=== PATIENT | male | born 2000 | race Caucasian/White ===

== ENCOUNTER 2018-05-06 22:30 | Emergency (ER) | payer SELFPAY ==
[2018-05-06] MEDS ORDERED: Lidocaine 2% EPI 1:200000 MPF* 10 ML VIAL INJ ONE (22:39)
--- NOTE | 2018-05-06 22:41 | ED ---
Laceration/Wound HPI - HPI Summary HPI Summary: This patient is a 17 year old M brought in by ambulance to ED with a chief complaint of L hand laceration since [employer]ORT OR [employer]. The patient states he broke off his mckeon in the car door and took out his knife to try to remove it when the knife slipped and cut him on the L hand between the pinky and ring finger. Currently, the bleeding is controlled. The patient rates the pain 4/10 in severity. Symptoms aggravated by nothing. Symptoms alleviated by nothing. - History of Current Complaint Stated Complaint: LAC ON RIGHT PINKY FINGER PER EMS Time Seen by Provider: 05/06/18 22:36 Hx Obtained From: Patient Onset/Duration: Sudden Onset, Lasting Minutes, Still Present Aggravating: Nothing Alleviating: Nothing Onset Severity: Mild Current Severity: Mild Pain Intensity: 4 Pain Scale Used: 0-10 Numeric - Allergy/Home Medications Home Medications: Home Medications NK [No Home Medications Reported] 05/06/18 [History Confirmed 05/06/18] PMH/Surg Hx/FS Hx/Imm Hx Endocrine/Hematology History: Denies: Hx Diabetes Cardiovascular History: Denies: Hx Coronary Artery Disease Infectious Disease History: No Infectious Disease History: Denies: Traveled Outside the [place] in Last 30 Days - Family History Known Family History: Negative: Blood Disorder - Social History Alcohol Use: None Substance Use Type: Reports: Marijuana Smoking Status (MU): Never Smoked Tobacco Review of Systems Negative: Fever Positive: Other - L hand laceration between pinky and ring finger All Other Systems Reviewed And Are Negative: Yes Physical Exam - Summary Physical Exam Summary: Appearance: Well-appearing, Well-nourished, lying in bed comfortably Skin: Warm, dry, no obvious rash, Laceration in the 4th web space that is approximately 2 cm long Eyes: sclera anicteric, no conjunctival pallor ENT: mucous membranes moist, pharynx appears normal Neck: Supple, nontender Respiratory: Clear to auscultation, no signs of respiratory distress Cardiovascular: Normal S1, S2. No murmurs. Normal distal pulses in tibial and radial bilaterally. Abdomen: Soft, nontender, normal active bowel sounds present Musculoskeletal: Normal, Strength/ROM Intact Neurological: A&Ox3, awake and alert, mentation is normal, speech is fluent and appropriate Psychiatric: affect is normal, does not appear anxious or depressed Triage Information Reviewed: Yes Vital Signs On Initial Exam: Initial Vitals Temp Pulse Resp BP Pulse Ox 98.6 F 85 16 127/80 96 05/06/18 22:32 05/06/18 22:32 05/06/18 22:32 05/06/18 22:32 05/06/18 22:32 Vital Signs Reviewed: Yes Procedures - Laceration/Wound Repair 1 Location: upper extremity - Laceration in the 4th web space that is approximately 2 cm long Description: Linear Anesthesia: Lido - 25% Marcaine and 2% lidocaine Length, Depth and Shape: 2 cm Laceration/Wound Explored: clean Suture Type: Nylon - 5-0 Number of Sutures: 5 Layer Closure?: Yes Sterile Dressing Applied?: Yes Diagnostics - Vital Signs Vital Signs Temp Pulse Resp BP Pulse Ox 05/06/18 22:32 98.6 F 85 16 127/80 96 - Laboratory Lab Statement: Any lab studies that have been ordered have been reviewed, and results considered in the medical decision making process. Laceration Repair Course/Dx - Course Assessment/Plan: This patient is a 17 year old M brought in by ambulance to ED with a chief complaint of L hand laceration since [employer] OR [employer]. The patient's laceration was closed with 5 5-0 nylon stitches. This patient will be discharged with dx of laceration of L hand. Patient understands and agrees with this plan. - Differential Dx Differental Diagnoses: Other - laceration of L hand - Clinical Impression Provider Diagnoses: Laceration of left hand Discharge - Sign-Out/Discharge Documenting (check all that apply): Patient Departure - discharge Patient Received Moderate/Deep Sedation with Procedure: No - Discharge Plan Condition: Improved Disposition: HOME Patient Education Materials: Laceration (ED) Referrals: [facility] [Outside] Additional Instructions: Sutures need removal in about a week. - Attestation Statements Document Initiated by Scribe: Yes Documenting Scribe: Fidel Crawford Provider For Whom Scribe is Documenting (Include Credential): Jenaro Crawford MD Scribe Attestation: Fidel Don, scribed for Jenaro Crawford MD on 05/06/18 at 2321.
[2018-05-06] MEDS ORDERED: Lidocaine 2% EPI 1:200000 MPF*10-20 ML VIAL ONE (22:51)
[2018-05-06 23:16] VITALS: BP 132/67
== END 2018-05-06 23:15 | disposition home or self-care (01) ==
LOC: ED 22:30
DX: S61.412A Laceration without foreign body of left hand, initial encounter (principal); W26.0XXA Contact with knife, initial encounter; Y92.810 Car as the place of occurrence of the external cause
CPT/HCPCS: 12001; 99282

== ENCOUNTER 2018-05-10 13:51 | Emergency (ER) | payer OTHER ==
[2018-05-10 15:51] VITALS: BP 130/66
--- NOTE | 2018-05-10 18:44 | ED ---
Upper Extremity Pain - HPI Summary HPI Summary: Patient is a 17-year-old male who presents emergency department for reevaluation of wound to right fifth digit. Patient states he cut his finger with a knife 05/06 and received stitches in the emergency department. He shouldn 't states he's noticed decreased sensation to the inner aspect of his right fifth digit and presents for evaluation. Patient denies fever, chills, increased pain, redness or drainage from digit. Symptoms are mild in severity. No current modifying factors. - History of Current Complaint Chief Complaint: EDExtremityUpper Stated Complaint: PINKY IS REALLY HARD AND NO FEELING WHERE STITCHES Time Seen by Provider: 05/10/18 14:58 Hx Obtained From: Patient - Allergies/Home Medications Allergies/Adverse Reactions: Allergies Allergy/AdvReac Type Severity Reaction Status Date / Time No Known Allergies Allergy Verified 05/10/18 13:58 PMH/Surg Hx/FS Hx/Imm Hx Previously Healthy: Yes Endocrine/Hematology History: Denies: Hx Diabetes Cardiovascular History: Denies: Hx Coronary Artery Disease Infectious Disease History: No Infectious Disease History: Denies: Traveled Outside the [place] in Last 30 Days - Family History Known Family History: Positive: Non-Contributory Negative: Blood Disorder - Social History Occupation: Unemployed Lives: With Family Alcohol Use: None Substance Use Type: Reports: Marijuana Smoking Status (MU): Never Smoked Tobacco Review of Systems Constitutional: Negative Negative: Fever, Chills Positive: Other - sutured wound to right 5th digit of hand Positive: Paresthesia All Other Systems Reviewed And Are Negative: Yes Physical Exam Triage Information Reviewed: Yes Vital Signs On Initial Exam: Initial Vitals Temp Pulse Resp BP Pulse Ox 98.3 F 76 16 138/94 98 05/10/18 13:55 05/10/18 13:55 05/10/18 13:55 05/10/18 13:55 05/10/18 13:55 Vital Signs Reviewed: Yes Appearance: Positive: Well-Appearing - Pt. sitting in chair in NAD. Skin: Positive: Warm, Dry Head/Face: Positive: Normal Head/Face Inspection Eyes: Positive: Normal, EOMI Neck: Positive: Supple Musculoskeletal: Positive: Other - healing sutured wound to the proximal inner aspect of 5th digit of hand. No erythema, edema or drainage. Full FOM with flexion, extension, adduction, and abduction. Decreased sensation noted over the inner aspect of digit. Neurological: Positive: Normal, CN Intact II-III Psychiatric: Positive: Affect/Mood Appropriate Diagnostics - Vital Signs Vital Signs Temp Pulse Resp BP Pulse Ox 05/10/18 15:50 98.4 F 67 18 130/66 97 05/10/18 13:55 98.3 F 76 16 138/94 98 - Laboratory Lab Statement: Any lab studies that have been ordered have been reviewed, and results considered in the medical decision making process. Course/Dx - Course Course Of Treatment: Patient presenting for reevaluation of sutured wound complaining of paresthesias to digit. No signs of infection and tendons are intact. Advised patient that there is mostly nerve damage secondary to laceration that may or may not resolve. Will have patient follow-up with Dr. Andrew for hand surgery. Suture removal as directed. To continue wound care. Patient understands and agrees with plan. - Diagnoses Differential Diagnosis/HQI/PQRI: Positive: Strain, Sprain Provider Diagnoses: Sutured skin wound, Paresthesia Discharge - Sign-Out/Discharge Documenting (check all that apply): Patient Departure Patient Received Moderate/Deep Sedation with Procedure: No - Discharge Plan Condition: Good Disposition: HOME Patient Education Materials: Care For Your Stitches (ED), Paresthesia (ED) Referrals: Ray Andrew MD [Medical Doctor] - Additional Instructions: Schedule a follow up appointment with Dr. Andrew (hand surgeon) Suture removal as scheduled Return to ER if symptoms change or worsen - Billing Disposition and Condition Condition: GOOD Disposition: Home - Attestation Statements Provider Attestation: I was available for consult. This patient was seen by the SHWETA. The patient was not presented to, seen by, or examined by me. -Mariam
== END 2018-05-10 15:50 | disposition home or self-care (01) ==
LOC: ED 13:51
DX: S61.216A Laceration without foreign body of right little finger without damage to nail, initial encounter (principal); R20.0 Anesthesia of skin; W26.0XXA Contact with knife, initial encounter; Y92.9 Unspecified place or not applicable
CPT/HCPCS: 99282